=== PATIENT | female | born 1985 | race Caucasian/White ===

== ENCOUNTER 2023-10-18 08:06 | Emergency (ER) | payer OTHER, SELFPAY ==
[2023-10-18 08:10] VITALS: BP 125/68; PULSE 87; RESP 18; TEMP 37.2; O2SAT 100
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
== END 2023-10-18 08:30 | disposition home or self-care (01) ==
PROVIDERS: Emergency Provider Nurse Practitioner Family
DX: S50.812A Abrasion of left forearm, initial encounter (principal); W50.3XXA Accidental bite by another person, initial encounter; F41.9 Anxiety disorder, unspecified
CPT/HCPCS: 99213; G0463